=== PATIENT | male | born 1960 | race Caucasian/White ===

== ENCOUNTER 2024-06-21 14:00 | Outpatient (RCR) | payer BC, SELFPAY | END 2024-09-16 10:30 | disposition home or self-care (01) | PROVIDERS: PCP Student in an Organized Health Care Education/Training Program; Visit Provider Family Medicine | DX: S83.232D Complex tear of medial meniscus, current injury, left knee, subsequent encounter (principal); M77.8 Other enthesopathies, not elsewhere classified; M25.562 Pain in left knee; Z51.89 Encounter for other specified aftercare | CPT/HCPCS: 97110; 97161 ==